=== PATIENT | female | born 1960 | race Caucasian/White ===

== ENCOUNTER 2016-09-26 20:58 | Emergency (ER) | payer OTHER ==
[2016-09-26] MEDS ORDERED: predniSONE 20 MG TABLET PO STA (21:51)
--- NOTE | 2016-09-26 21:54 | ED Physician Documentation ---
History of Present Illness - Stated complaint Stated Complaint: L ARM PX/NUMB, HEART PALPS, CHILLS - Chief complaint Chief Complaint: General - History obtained from History obtained from: Patient - History of Present Illness Timing: Today (Trip [place] fall walking on the beach earlier today, no apparent injury. Tonight she was sitting up off the couch and developed sudden sharp left bicep pain radiating down towards the hand with numbness of the left hand which has improved but not abated. There is no associated shortness of breath or chest pain. 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 - Present Medications Home Medications: Ambulatory Orders Medication Instructions Recorded Confirmed Esomeprazole Magnesium [Nexium] 40 mg ORAL DAILY 03/19/14 09/26/16 hydrOXYzine PAMOATE [Vistaril] 25 mg PO Q6H PRN #20 capsule 04/08/15 09/26/16 predniSONE [Deltasone] 60 mg PO DAILY 5 Days 09/26/16 - Allergies Allergies/Adverse Reactions: Allergies Allergy/AdvReac Type Severity Reaction Status Date / Time No Known Drug Allergies Allergy Verified 09/26/16 21:20 - Social History Does the pt smoke?: No Smoking Status: Former smoker Does the pt drink ETOH?: No Does the pt have substance abuse?: No - Immunizations Immunizations are current?: Yes - POLST Patient has POLST: No PD ED PE NORMAL - Vitals Vital signs reviewed: Yes - General General: Alert and oriented X 3, No acute distress - HEENT HEENT: PERRL, EOMI - Neck Neck: Other (Tender to the mid neck, full range of motion) - Cardiac Cardiac: RRR, No murmur - Respiratory Respiratory: Clear bilaterally - Extremities Extremities: Other (Full range of motion of both arms, she is mildly diminished sensation over the lateral upper forearm on the left. Mildly diminished tricep reflex on the left with equal bicep and coracobrachialis reflexes bilaterally. Guest Request Runner strength, thumb extension, interossei, and wrist flexion are symmetric. She is mildly decreased wrist extension on the left but that may be limited by pain. The arms are nontender. She has equal radial pulses.) - Neuro Neuro: Alert and oriented X 3, Normal speech - Psych Psych: Normal mood, Normal affect Results - Vitals Vitals: Vital Signs - 24 hr 09/26/16 21:15 Temperature 36.6 C Heart Rate 95 Respiratory 16 Rate Blood Pressure 145/98 H O2 Saturation 98 Oxygen O2 Source Room air - EKG (time done) 2132 Rate: Rate (enter#) (91) Rhythm: NSR [place]: Normal Intervals: Normal MA QRS: Normal Ischemia: Normal ST segments Computer interpretation: Agree with computer - Rads (name of study) Ct Cspine Radiology: EMP read contemporaneously (Degenerative joint disease in all the facet joints and spondylolisthesis at C7-T1) PD MEDICAL DECISION MAKING - ED course ED course: 55-year-old woman presents with symptoms that are most consistent with an acute cervical radiculopathy. She was worried about referred heart disease, however her exam and EKG are inconsistent. Given a fall earlier in the day CT was done , there is no evidence of fracture. She declined pain medication. Departure - Departure Disposition: 01 Home, Self Care Clinical Impression: Cervical radiculopathy, Fall from ground level Condition: Good Record reviewed to determine appropriate education?: Yes Instructions: ED Neck Pain No Trauma, ED Cervical Radiculopathy Prescriptions: predniSONE [Deltasone] 60 mg PO DAILY 5 Days Comments: Followup with Dr. Park in one week. Return if worse. Your blood pressure was elevated today on check in to the emergency department. This does not mean that you have hypertension, it is a common phenomenon to check into the emergency department and have elevated blood pressure. I recommend that you see your primary care physician within the week to have it rechecked when you're feeling better.
[2016-09-26] MEDS ORDERED: predniSONE 20 MG TABLET ONE (21:56)
--- NOTE | 2016-09-26 22:34 | CT Preliminary Report ---
Exam: CT Cervical Spine W/O IMPRESSION: 1. No acute fracture or dislocation seen. 2. Degenerative joint disease in the facet joints at all levels with minimal degenerative spondylolis thesis at C7-T1. [facility] SITE ID: [id number]
--- NOTE | 2016-09-26 22:37 | CT Report ---
EXAM: CT CERVICAL SPINE WITHOUT CONTRAST DATE: 09/26/2016 10:14 PM HISTORY: Fall today with new radicular symptoms. COMPARISONS: 03/19/2014. TECHNIQUE: Thin-section axial images were acquired of the cervical spine without contrast. Post-proce ssing: Coronal and sagittal reformats. Other: None. In accordance with CT protocol optimization, one or more of the following dose reduction techniques w ere utilized for this exam: automated exposure control, adjustment of mA and/or KV based on patient s ize, or use of iterative reconstructive technique. FINDINGS: Alignment: Minimal degenerative spondylolisthesis again seen at C7-T1. Alignment is otherwise unremar kable. Bones: No fracture or bone lesion. Interspace Levels/Facets: Degenerative joint disease in the facet joints at all levels. The height of the disk spaces is relati vely well preserved for age. No spinal stenosis. Other: The paravertebral and prevertebral soft tissues are normal. The lung apices are clear. IMPRESSION: 1. No acute fracture or dislocation seen. 2. Degenerative joint disease in the facet joints at all levels with minimal degenerative spondylolis thesis at C7-T1. [facility] Referring Provider Line: [phone] SITE ID: [id number]
[2016-09-26 23:07] VITALS: BP 119/75
== END 2016-09-26 23:08 | disposition home or self-care (01) ==
LOC: ED 20:58
DX: M54.12 Radiculopathy, cervical region (principal); W01.0XXA Fall on same level from slipping, tripping and stumbling without subsequent striking against object, initial encounter; Y93.01 Activity, walking, marching and hiking; Y92.832 Beach as the place of occurrence of the external cause; K21.9 Gastro-esophageal reflux disease without esophagitis; Z87.891 Personal history of nicotine dependence; R03.0 Elevated blood-pressure reading, without diagnosis of hypertension
CPT/HCPCS: 72125; 93005; 93010; 99283

== ENCOUNTER 2016-12-16 19:56 | Outpatient (CLI) | payer OTHER ==
--- NOTE | 2016-12-18 09:47 | Ultrasound Report ---
PELVIC ULTRASOUND, TRANSABDOMINAL: 12/16/2016 CLINICAL HISTORY: Abdominal pain. TECHNIQUE: Real-time scanning was performed with financial services sales representative static images obtained. FINDINGS: Uterus measures 8.7 x 4.5 x 5.5 cm for a volume of 111.6 mL. Central endometrial echo complex is within normal limits measuring 5 mm. Uterine contours appear mildly prominent within the posterior aspect of the fundus. This is a nonspecific finding. It may be a normal variation. Other consideration is a subtle sign of a fibroid or adenomyosis. Other studies such as a transvaginal ultrasound could be obtained for further evaluation of this finding. Right ovary was not seen. Findings are equivocal in regard to visualization of normal size left ovary. IMPRESSION: 1. LIMITED EXAM CONSISTING ONLY OF A TRANSABDOMINAL STUDY. 2. OVARIES WERE NOT ADEQUATELY VISUALIZED AND THEREFORE COULD COMMENT ON THEM. 3. UTERINE FUNDUS APPEARS MILDLY LARGER THAN EXPECTED. THIS FINDING IS NONSPECIFIC. IT MAY REPRESENT A NORMAL VARIATION OR A SUBTLE SIGN OF A FIBROID/ ADENOMYOSIS. IF INDICATED, ADDITIONAL STUDIES SUCH A TRANSVAGINAL ULTRASOUND COULD BE OBTAINED FOR FURTHER EVALUATION. JOB #: [id number] EXT JOB #: MTDD
== END 2016-12-16 19:57 | disposition home or self-care (01) ==
LOC: DI 19:56
PROVIDERS: ATTEND Family Medicine
DX: R10.9 Unspecified abdominal pain (principal)
CPT/HCPCS: 76856

== ENCOUNTER 2016-12-17 20:54 | Outpatient (CLI) | payer OTHER ==
--- NOTE | 2016-12-18 14:38 | Ultrasound Report ---
COMPLETE ABDOMINAL ULTRASOUND: 12/17/2016 CLINICAL INDICATION: Abdominal pain. TECHNIQUE: Real-time scanning was performed with retail sales representative static images obtained. FINDINGS: The liver measures 15.6 cm. Hepatic echogenicity is increased, compatible with fatty infil tration. No focal parenchymal lesion or intrahepatic biliary dilatation is seen. The common bile duct measures 6 mm. The gallbladder is normal. The pancreas is unremarkable. The kidneys are normal, with the right measuring 10.1 cm and the left measuring 10.9 cm. The spleen measures 8.6 cm, and demonstr ates normal echotexture. The abdominal aorta is normal in caliber. The inferior vena cava is unremark able. No free fluid is present. IMPRESSION: FATTY INFILTRATION OF THE LIVER. NO EVIDENCE OF CHOLELITHIASIS OR BILIARY OBSTRUCTION. JOB #: [id number] EXT JOB #:[id number]
== END 2016-12-17 20:55 | disposition home or self-care (01) ==
LOC: DI 20:54
PROVIDERS: ATTEND Family Medicine
DX: K76.0 Fatty (change of) liver, not elsewhere classified (principal)
CPT/HCPCS: 76700

== ENCOUNTER 2017-03-12 20:01 | Emergency (ER) | payer OTHER ==
--- NOTE | 2017-03-12 20:59 | ED Physician Documentation ---
History of Present Illness - Stated complaint Stated Complaint: CHEST PX - Chief complaint Chief Complaint: Cardiac - History obtained from History obtained from: Patient - History of Present Illness Timing: Enter time (14:00), Today Pain level now: 6 Improved by: no ameliorating factors Worsened by: no exacerbating factors - Additonal information Additional information: c/o migraine headache since 2 PM today, as well as midline chest pain, aching and without radiation. nausea but no vomiting. also c/o generalized paresthesias Review of Systems Constitutional: reports: Reviewed and negative Cardiac: reports: Chest pain / pressure. denies: Palpitations Respiratory: reports: Reviewed and negative GI: reports: Nausea. denies: Abdominal Pain, Vomiting Musculoskeletal: denies: Neck pain, Back pain Neurologic: reports: Headache. 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 - Present Medications Home Medications: Ambulatory Orders Medication Instructions Recorded Confirmed Esomeprazole Magnesium [Nexium] 40 mg ORAL DAILY 03/19/14 09/26/16 hydrOXYzine PAMOATE [Vistaril] 25 mg PO Q6H PRN #20 capsule 04/08/15 09/26/16 predniSONE [Deltasone] 60 mg PO DAILY 5 Days tablet 09/26/16 - Allergies Allergies/Adverse Reactions: Allergies Allergy/AdvReac Type Severity Reaction Status Date / Time No Known Drug Allergies Allergy Verified 03/12/17 20:13 - Social History Does the pt smoke?: No Smoking Status: Former smoker Does the pt drink ETOH?: No Does the pt have substance abuse?: No - Immunizations Immunizations are current?: Yes - POLST Patient has POLST: No PD ED PE NORMAL - Vitals Vital signs reviewed: Yes - General General: Alert and oriented X 3, No acute distress, Well developed/nourished - HEENT HEENT: PERRL, EOMI, Moist mucous membranes - Neck Neck: Supple, no meningeal sign - Cardiac Cardiac: RRR, No murmur - Respiratory Respiratory: No respiratory distress, Clear bilaterally - Abdomen Abdomen: Soft, Non tender - Back Back: No CVA TTP - Derm Derm: Normal color, Warm and dry, No rash - Extremities Extremities: No edema - Neuro Neuro: Alert and oriented X 3, imaging services director 2-12 intact, No motor deficit, No sensory deficit, Normal speech Results - Vitals Vitals: Vital Signs - 24 hr 03/12/17 23:00 Heart Rate 85 Respiratory 18 Rate Blood Pressure 119/81 H O2 Saturation 99 Oxygen O2 Source Room air - EKG (time done) No standard instances Rate: Rate (enter#) (72) Rhythm: NSR [place]: Normal Intervals: Normal OR QRS: Normal Ischemia: Normal ST segments - Labs Labs: Laboratory Tests 03/12/17 03/12/17 03/12/17 21:50 21:50 21:50 WBC 9.9 RBC 4.78 Hgb 12.7 Hct 37.9 MCV 79.2 L MCH 26.5 L MCHC 33.4 RDW 14.6 Plt Count 296 MPV 8.1 Neut # 4.8 Lymph # 3.8 H [place] # 0.9 Eos # 0.3 Baso # 0.1 Absolute Nucleated RBC 0.00 Nucleated RBC % 0.0 Sodium 139 Potassium 3.4 L Chloride 102 Carbon Dioxide 25 Anion Gap 12.0 BUN 17 Creatinine 0.7 Estimated GFR (MDRD) 87 L Glucose 125 H Calcium 9.3 Troponin I < 0.04 - Rads (name of study) chest xray Radiology: Prelim report reviewed, See rad report PD MEDICAL DECISION MAKING - ED course Complexity details: reviewed results, re-evaluated patient, considered differential, d/w patient Departure - Departure Disposition: 01 Home, Self Care Clinical Impression: Headache Chest pain Qualifiers: Chest pain type: unspecified Qualified Code(s): R07.9 - Chest pain, unspecified Condition: Good Instructions: ED Chest Pain Atypical Unkn Cause, ED Cephalgia Unspecified Comments: Follow up with your primary care provider: call when their office opens to arrange for next available appointment Discharge Date/Time: 03/12/17 23:00
--- NOTE | 2017-03-12 21:58 | CT Preliminary Report ---
Exam: CT HEAD W/O IMPRESSION: Negative nonenhanced head CT. [facility] SITE ID: [id number]
--- NOTE | 2017-03-12 22:00 | XRAY Preliminary Report ---
Exam: XR CHEST 2 VIEW PA/LAT IMPRESSION: No acute cardiopulmonary abnormality. [facility] SITE ID: [id number]
--- NOTE | 2017-03-12 22:01 | CT Report ---
EXAM: CT HEAD EXAM DATE: 03/12/2017 09:38 PM. CLINICAL HISTORY: Headache. COMPARISON: 03/19/2014. TECHNIQUE: Multiaxial CT images were obtained from the foramen magnum to the vertex. IV contrast: Non e. Reformats: Coronal. In accordance with CT protocol optimization, one or more of the following dose reduction techniques w ere utilized for this exam: automated exposure control, adjustment of mA and/or KV based on patient s ize, or use of iterative reconstructive technique. FINDINGS: Parenchyma: Negative for intracranial hemorrhage. Garay-white matter differentiation is preserved. No mass effect or midline shift. Extraaxial Spaces: Normal for age. No subdural or epidural collections identified. Ventricles: Normal in size and position. Sinuses and orbits: Imaged paranasal sinuses, orbits, and mastoids show no significant abnormality. Bones: No evidence of fracture or calvarial defect. Other: None. IMPRESSION: Negative nonenhanced head CT. [facility] Referring Provider Line: [phone] SITE ID: [id number]
[2017-03-12 22:02] LABS: BASOPHILS # (AUTO) 0.1 10^3/uL (0.0-0.1); BASOPHILS % (AUTO) 0.6 %; EOSINOPHILS # (AUTO) 0.3 10^3/uL (0.0-0.7); HCT - HEMATOCRIT 37.9 % (37.0-47.0); HGB - HEMOGLOBIN 12.7 g/dL (12.0-16.0); LYMPHOCYTES # (AUTO) 3.8 10^3/uL (1.5-3.5); LYMPHOCYTES % (AUTO) 38.4 %; MEAN CORPUSCULAR HEMOGLOBIN 26.5 pg (27.0-31.0); MEAN CORPUSCULAR HGB CONC 33.4 g/dL (32.0-36.0); MEAN CORPUSCULAR VOLUME 79.2 fL (81.0-99.0); MEAN PLATELET VOLUME 8.1 fL (7.9-10.8); MONOCYTES # (AUTO) 0.9 10^3/uL (0.0-1.0); MONOCYTES % (AUTO) 9.4 %; NEUTROPHILS # (AUTO) 4.8 10^3/uL (1.5-6.6); NEUTROPHILS % (AUTO) 48.6 %; RED BLOOD COUNT 4.78 10^6/uL (4.20-5.40); RED CELL DISTRIBUTION WIDTH 14.6 % (12.0-15.0); UNCORRECTED WHITE BLOOD COUNT 9.9 x10^3/uL; WHITE BLOOD COUNT 9.9 x10^3/uL (4.8-10.8)
--- NOTE | 2017-03-12 22:03 | XRAY Report ---
EXAM: CHEST RADIOGRAPHY EXAM DATE: 03/12/2017 09:22 PM. CLINICAL HISTORY: Chest pain. COMPARISON: 01/29/2012. TECHNIQUE: 2 views. FINDINGS: Lungs/Pleura: No focal opacities evident. No pleural effusion. No pneumothorax. Normal volumes. Mediastinum: Heart and mediastinal contours are unremarkable. Other: No significant interval change. IMPRESSION: No acute cardiopulmonary abnormality. [facility] Referring Provider Line: [phone] SITE ID: [id number]
[2017-03-12 22:07] LABS: CALCIUM 9.3 mg/dL (8.5-10.3); CREATININE 0.7 mg/dL (0.4-1.0); POTASSIUM 3.4 mmol/L (3.5-5.0)
[2017-03-12 23:00] VITALS: BP 119/81
== END 2017-03-12 23:00 | disposition home or self-care (01) ==
LOC: ED 20:01
DX: R51 Headache (principal); R07.9 Chest pain, unspecified; K21.9 Gastro-esophageal reflux disease without esophagitis; Z87.891 Personal history of nicotine dependence
CPT/HCPCS: 36415; 70450; 71020; 80048; 84484; 85025; 93005; 99283; 99284

== ENCOUNTER 2017-04-21 10:03 | Outpatient (CLI) | payer BC ==
--- NOTE | 2017-04-21 14:10 | Mammography Report ---
DIGITAL DIAGNOSTIC BILATERAL MAMMOGRAM: 04/21/2017 CLINICAL INDICATION: Six-month followup asymmetry left breast. TECHNIQUE: Bilateral CC and MLO views, bilateral true lateral views, left spot compression views. At the time of the examination, the patient also described bilateral shooting breast pains intermittentl y, so bilateral diagnostic was performed. COMPARISON: 04/21/2016, 09/04/2015, 08/29/2015, 07/07/2014, 10/21/2011, 06/30/2010. FINDINGS: The breasts again demonstrate scattered fibroglandular parenchyma bilaterally. Parenchymal asymmetry in the left upper inner breast is stable. Coarse and punctate, typically benign calcificat ions are present. No suspicious masses, clustered microcalcifications, or regions of architectural di stortion are identified. IMPRESSION: BENIGN FINDINGS. RECOMMENDATION: ROUTINE ANNUAL SCREENING UNLESS OTHERWISE CLINICALLY INDICATED. BIRADS CATEGORY 2-BENIGN FINDINGS. STANDARD QUALIFYING STATEMENTS 1. This examination was reviewed with the aid of Computer-Aided Detection (CAD). 2. A negative or benign imaging report should not delay biopsy if clinically suspicious findings are present. Consider surgical consultation if warranted. More than 5% of cancers are not identified by i maging. 3. Dense breasts may obscure an underlying neoplasm. JOB #: [id number] EXT JOB #:[id number]
== END 2017-04-21 10:04 | disposition home or self-care (01) ==
LOC: DI 10:03
PROVIDERS: ATTEND Family Medicine
DX: R92.8 Other abnormal and inconclusive findings on diagnostic imaging of breast (principal)
CPT/HCPCS: 77066

== ENCOUNTER 2018-04-11 11:23 | Outpatient (CLI) | payer BC | END 2018-04-11 11:24 | disposition home or self-care (01) | LOC: SC 11:23 | PROVIDERS: ATTEND Internal Medicine Pulmonary Disease | DX: G47.10 Hypersomnia, unspecified (principal); G47.8 Other sleep disorders; R51 Headache | CPT/HCPCS: 99203; 99212 ==

== ENCOUNTER 2018-05-05 19:30 | Outpatient (CLI) | payer BC | END 2018-05-05 23:59 | disposition home or self-care (01) | LOC: SC 19:30 | PROVIDERS: ATTEND Internal Medicine Pulmonary Disease | DX: G47.33 Obstructive sleep apnea (adult) (pediatric) (principal) | CPT/HCPCS: 95806 ==

== ENCOUNTER 2018-08-08 16:18 | Outpatient (CLI) | payer BC ==
--- NOTE | 2018-08-09 10:00 | Mammography Report ---
Reason: SCREENING MAMMO Procedure Date: 08/08/2018 Accession Number: [id number] / [id number] Procedure: [facility] - Screening Mammo w/Zoltan CPT Code: FULL RESULT: EXAM: Screening Mammo w/Zoltan DATE: 08/08/2018 5:23 PM CLINICAL HISTORY: Routine screening. No reported personal or family history of breast cancer. TECHNIQUE: Bilateral CC and MLO views were obtained. COMPARISON: 04/21/2017 through 10/21/2011 FINDINGS: The breasts demonstrate heterogeneously dense fibroglandular parenchyma bilaterally. Bilateral breasts: There are no suspicious masses, calcifications or areas of distortion. IMPRESSION: Negative examination RECOMMENDATION: Routine annual screening unless otherwise clinically indicated. BI-RADS CATEGORY 1: Negative STANDARD QUALIFYING STATEMENTS: 1. This examination was not reviewed with the aid of Computer-Aided Detection (CAD). 2. A negative or benign imaging report should not preclude biopsy if clinically suspicious findings are present. 3. Dense breasts may obscure an underlying neoplasm. 4. This examination was reviewed with the aid of 3D breast imaging (tomosynthesis).
== END 2018-08-08 16:19 | disposition home or self-care (01) ==
LOC: DI 16:18
PROVIDERS: ATTEND Family Medicine
DX: Z12.31 Encounter for screening mammogram for malignant neoplasm of breast (principal)
CPT/HCPCS: 77063; 77067

== ENCOUNTER 2018-08-16 09:18 | Outpatient (CLI) | payer BC | END 2018-08-16 09:19 | disposition home or self-care (01) | LOC: SC 09:18 | PROVIDERS: ATTEND Nurse Practitioner Family | DX: G47.33 Obstructive sleep apnea (adult) (pediatric) (principal) | CPT/HCPCS: 99212; 99214 ==

== ENCOUNTER 2019-07-06 09:27 | Day surgery (SDC) | payer OTHER ==
[2019-07-06] MEDS ORDERED: MIDAZOLAM 2 MG/2 ML VIAL IVP ONE (09:28)
[2019-07-06] MEDS ORDERED: fentaNYL 100 MCG/2 ML VIAL IVP ONE (09:28)
[2019-07-06] MEDS ORDERED: LACTATED RINGERS 1,000 ML IV ONE (09:36)
[2019-07-06] MEDS ORDERED: LIDO GARGLE 30 ML BOTTLE PO ONE (11:10)
[2019-07-06] MEDS ORDERED: LIDO GARGLE 30 ML BOTTLE ONE (11:11)
[2019-07-06 11:47] VITALS: BP 98/65
== END 2019-07-06 09:28 | disposition home or self-care (01) ==
LOC: SDS 09:27
PROVIDERS: ATTEND Surgery
PROC: 0DB78ZX Excision of Stomach, Pylorus, Via Natural or Artificial Opening Endoscopic, Diagnostic (ICD-10-PCS; 2019-07-06)
PROC: 0DB48ZX Excision of Esophagogastric Junction, Via Natural or Artificial Opening Endoscopic, Diagnostic (ICD-10-PCS; 2019-07-06)
PROC: 0DB98ZX Excision of Duodenum, Via Natural or Artificial Opening Endoscopic, Diagnostic (ICD-10-PCS; principal; 2019-07-06 10:45)
DX: K21.9 Gastro-esophageal reflux disease without esophagitis (principal); K29.70 Gastritis, unspecified, without bleeding; K44.9 Diaphragmatic hernia without obstruction or gangrene; I10 Essential (primary) hypertension; J45.909 Unspecified asthma, uncomplicated; E66.9 Obesity, unspecified; Z68.37 Body mass index [BMI] 37.0-37.9, adult; E78.5 Hyperlipidemia, unspecified; R73.9 Hyperglycemia, unspecified; Z79.82 Long term (current) use of aspirin; Z87.891 Personal history of nicotine dependence
CPT/HCPCS: 43239; A9270; J7120

== ENCOUNTER 2019-08-25 09:30 | Outpatient (CLI) | payer OTHER ==
--- NOTE | 2019-08-25 17:36 | Nuclear Medicine Report ---
Reason: CONTINUOUS RUQ ABD, ESOPH REFLUX Procedure Date: 08/25/2019 Accession Number: [id number] / [id number] Procedure: NM - Gastric Empty Small Bowel CPT Code: Final Report FULL RESULT: EXAM: GASTRIC EMPTYING STUDY EXAM DATE: 08/25/2019 04:12 PM. CLINICAL HISTORY: CONTINUOUS RUQ ABD, ESOPH REFLUX. COMPARISON: None. TECHNIQUE: A standard meal was radiolabeled with 1 mCi Tc-99m sulfur colloid according to protocol. Following the p.o. administration of this meal, the patient underwent multiple static images over the abdomen from the anterior and posterior projections, at approximately 0, 1, 2, 3, and 4 hours following the ingestion of the meal. Region of interest analysis was employed, and percent emptied/percent remaining of the meal was calculated using both the geometric mean and decay corrections. FINDINGS: Calculations demonstrate: TIME (hours) Percent remaining. Normal values for percent remaining. 1 hour: 29% (30-90%) 2 hours: 5.8% (0-60%) 3 hours: 1.6% (0-30%) 4 hours: 1.1% (0-10%) IMPRESSION: Normal to borderline rapid gastric emptying. [facility]
== END 2019-08-25 09:31 | disposition home or self-care (01) ==
LOC: DI 09:30
PROVIDERS: ATTEND Surgery
DX: R10.11 Right upper quadrant pain (principal); K21.9 Gastro-esophageal reflux disease without esophagitis
CPT/HCPCS: 78265

== ENCOUNTER 2021-08-12 07:03 | Day surgery (SDC) | payer OTHER ==
[2021-08-12] MEDS ORDERED: LACTATED RINGERS 1,000 ML IV ONE (07:24)
--- NOTE | 2021-08-12 08:10 | ANESTHESIA ---
Pre-Anesthesia VS, & Labs - Diagnosis screening - Procedure EGD, colonoscopy Vital Signs: Temp Pulse Resp BP Pulse Ox 36.6 C 106 H 21 137/95 H 95 08/12/21 07:25 08/12/21 07:25 08/12/21 07:25 08/12/21 07:25 08/12/21 07:25 Height: 5 ft 4 in Weight (kg): 99.5 kg Body Mass Index: 37.6 BMI Classification: Obese - NPO >8 hours - Is Patient ?: No - Lab Results Lab results reviewed: Yes Home Medications and Allergies Home Medications: Ambulatory Orders Atorvastatin Calcium 40 mg PO DAILY 08/11/21 Calcium Carbonate [Calcium] 600 mg PO DAILY 08/11/21 Cholecalciferol (Vitamin D3) [Vitamin D3] 1,250 mcg PO DAILY 08/11/21 Metoprolol Succinate [Toprol Xl] 12.5 mg PO BID 08/11/21 Multivitamin 1 each PO DAILY 08/11/21 Sucralfate [Carafate] 1 tablet PO TID 08/11/21 Ubidecarenone [Co Q10] 60 mg PO DAILY 08/11/21 Esomeprazole Magnesium [Nexium] 40 mg ORAL DAILY 03/19/14 Atorvastatin Calcium 40 mg PO DAILY 08/11/21 Calcium Carbonate [Calcium] 600 mg PO DAILY 08/11/21 Cholecalciferol (Vitamin D3) [Vitamin D3] 1,250 mcg PO DAILY 08/11/21 Metoprolol Succinate [Toprol Xl] 12.5 mg PO BID 08/11/21 Multivitamin 1 each PO DAILY 08/11/21 Sucralfate [Carafate] 1 tablet PO TID 08/11/21 Ubidecarenone [Co Q10] 60 mg PO DAILY 08/11/21 Allergies/Adverse Reactions: Allergies Allergy/AdvReac Type Severity Reaction Status Date / Time No Known Drug Allergies Allergy Verified 08/12/21 07:06 Anes History & Medical History - Anesthetic History Anesthesia Complications: reports: No previous complications Family history of Anesthesia Complications: Denies Family history of Malignant Hyperthermia: Denies - Medical History Cardiovascular: reports: Hypertension, High cholesterol, Other Pulmonary: reports: None Gastrointestinal: reports: GERD Urinary: reports: None Musculoskeletal: reports: Chronic back pain Endocrine/Autoimmune: reports: None Smoking Status: Former smoker - Surgical History General: reports: Colonoscopy, EGD Gynecologic: reports: section Orthopedic: reports: Spine surgery Exam General: Alert Dental: WNL Mouth Openin Fingerbreadth Neck Mobility: Normal Mallampati classification: II Thyromental Distance: 4-6 cm Respiratory: Lungs clear, Normal breath sounds, No respiratory distress Cardiovascular: Regular rate (tachy @100ish) Neurological: Normal speech Mental/Cognitive Status: Alert/Oriented X3, Normal for patient Cognitive Status: Within normal limits Plan Anesthesia Type: Total IV Consent for Procedure(s) Verified and Reviewed: Yes Code Status: Attempt Resuscitation ASA classification: 2-Mild systemic disease Is this case an emergency?: No
[2021-08-12] MEDS ORDERED: PROPOFOL 500 MG/50 ML 500 MG/50 ML VIAL ONE ×3 (08:56→09:31)
[2021-08-12] MEDS ORDERED: LIDOCAINE-MPF 2% 5 ML VIAL ONE (09:05)
[2021-08-12] MEDS ORDERED: PROPOFOL 200 MG/20 ML VIAL IVP ONE ×2 (09:26→09:30)
[2021-08-12] MEDS ORDERED: LACTATED RINGERS 350 ML IV ONE (09:38)
[2021-08-12 09:53] VITALS: BP 101/65
--- NOTE | 2021-08-12 12:05 | ANESTHESIA POST OP EVALUATION ---
Anesthesia Post Eval - Post Anesthesia Eval Vitals: Last Vital Signs Temp 36.4 C L 08/12/21 09:52 Pulse 97 08/12/21 09:52 Resp 16 08/12/21 09:52 BP 101/65 08/12/21 09:52 Pulse Ox 100 08/12/21 09:52 CV Function Including HR & BP: Stable Pain Control: Satisfactory Nausea & Vomiting: Negative Mental Status: Baseline Respiratory Status: Airway Patent Hydration Status: Satisfactory Anesthesia Complications: None
== END 2021-08-12 07:04 | disposition home or self-care (01) ==
LOC: SDS 07:03
PROVIDERS: ATTEND Surgery
PROC: 0DB48ZX Excision of Esophagogastric Junction, Via Natural or Artificial Opening Endoscopic, Diagnostic (ICD-10-PCS; 2021-08-12)
PROC: 0DB68ZX Excision of Stomach, Via Natural or Artificial Opening Endoscopic, Diagnostic (ICD-10-PCS; 2021-08-12)
PROC: 0DB18ZX Excision of Upper Esophagus, Via Natural or Artificial Opening Endoscopic, Diagnostic (ICD-10-PCS; 2021-08-12)
PROC: 0DB28ZX Excision of Middle Esophagus, Via Natural or Artificial Opening Endoscopic, Diagnostic (ICD-10-PCS; 2021-08-12)
PROC: 0DB38ZX Excision of Lower Esophagus, Via Natural or Artificial Opening Endoscopic, Diagnostic (ICD-10-PCS; 2021-08-12)
PROC: 0DBN8ZZ Excision of Sigmoid Colon, Via Natural or Artificial Opening Endoscopic (ICD-10-PCS; principal; 2021-08-12 08:15)
PROC: 0DB98ZX Excision of Duodenum, Via Natural or Artificial Opening Endoscopic, Diagnostic (ICD-10-PCS; 2021-08-12 08:15)
DX: Z12.11 Encounter for screening for malignant neoplasm of colon (principal); K21.9 Gastro-esophageal reflux disease without esophagitis; K63.5 Polyp of colon; K64.8 Other hemorrhoids; K57.30 Diverticulosis of large intestine without perforation or abscess without bleeding; K25.7 Chronic gastric ulcer without hemorrhage or perforation; K25.9 Gastric ulcer, unspecified as acute or chronic, without hemorrhage or perforation; K44.9 Diaphragmatic hernia without obstruction or gangrene; E66.9 Obesity, unspecified; Z68.37 Body mass index [BMI] 37.0-37.9, adult; Z87.891 Personal history of nicotine dependence
CPT/HCPCS: 43239; 43250; 45380; J7120

== ENCOUNTER 2023-12-09 08:00 | Outpatient (CLI) | payer OTHER ==
[2023-12-09 17:16] LABS: BILIRUBIN,URINE NEGATIVE (NEGATIVE); GLUCOSE, URINE (UA) NEGATIVE (NEGATIVE); KETONES,URINE (UA) NEGATIVE (NEGATIVE); LEUKOCYTE ESTERASE, URINE MODERATE (NEGATIVE); NITRITE,URINE NEGATIVE (NEGATIVE); OCCULT BLOOD,URINE NEGATIVE (NEGATIVE); PH,URINE 5.5 PH (5.0-7.5); PROTEIN,URINE NEGATIVE (NEGATIVE); UROBILINOGEN,URINE 0.2 (NORMAL) E.U./dL (NORMAL)
[2023-12-09 17:21] LABS: CLARITY,URINE HAZY (CLEAR)
[2023-12-09 17:27] LABS: BACTERIA,URINE Moderate /HPF (None Seen); RBC,URINE 0-5 /HPF (0-5); SQUAMOUS EPITHELIAL CELL,UR FEW Squamous (<= Few); WBC,URINE >25 /HPF (0-5)
== END 2023-12-09 23:59 | disposition home or self-care (01) ==
LOC: LAB.WC 08:00
PROVIDERS: ATTEND Nurse Practitioner
DX: N81.10 Cystocele, unspecified (principal); N81.6 Rectocele
CPT/HCPCS: 81001; 87086; 87181